=== PATIENT | male | born 1935 | race Caucasian/White ===

== ENCOUNTER → 2021-01-11 | Day surgery (SDC) | payer MEDICARE, BC ==
[~2021-01-11] MED LIST: ATORVASTATIN CA40 MG PO; DEXAMETHASONE PHOS 24 MG/ML 10ML VIAL ONE; ELIQUIS5 MG PO; OFLOXACIN 0.3% (OTIC SOL) 5 ML BTL ONE; TEKTURNA150 MG PO
[2021-01-11 08:40] VITALS: BP 147/84
== END | disposition home or self-care (01) ==
LOC: OR 05:29
PROVIDERS: ATTEND Otolaryngology Otolaryngology/Facial Plastic Surgery
DX: H91.23 Sudden idiopathic hearing loss, bilateral (principal); I10 Essential (primary) hypertension; I48.91 Unspecified atrial fibrillation; Z79.01 Long term (current) use of anticoagulants; Z79.899 Other long term (current) drug therapy
CPT/HCPCS: 71046; 93005